=== PATIENT | female | born 1950 | race Asian ===

== ENCOUNTER 2019-03-14 14:28 | Emergency (ER) | payer MEDICARE ==
[2019-03-14] MEDS ORDERED: HYDROcodone/ACETAMINOPHEN 5-325 MG TAB PO ONE (15:24)
--- NOTE | 2019-03-14 16:00 | XRay Report ---
Left ankle-3 views INDICATION: Pain. Fall one week ago with generalized left ankle pain COMPARISON: None. IMPRESSION: Transversely oriented fracture at the tip of the lateral malleolus with moderate circumf erential soft tissue swelling about the ankle. No other fracture or malalignment identified. Mild de generative changes in the tarsals and enthesopathic change at the calcaneal tuberosity. Signer Name: Marquez Almaguer MD Signed: 03/14/2019 3:56 PM Workstation Name: [id number]
--- NOTE | 2019-03-14 16:22 | Emergency Department Report ---
ED Fall HPI - General Chief Complaint: Fall Stated Complaint: FALL Time Seen by Provider: 03/14/19 15:17 Source: patient, family Mode of arrival: Wheelchair - History of Present Illness Initial Comments: Patient reports her PCP requested she come to the ER to get an xray for her appointment in the office tomorrow. Patient reports she can not walk with crutches. Reports she will use a wheelchair until she can see her PCP tomorrow. Complaint: fall -: week(s) (1 approximately) Fall From: down stairs (#) (3) Place Fall Occurred: home Loss of Consciousness: none Prolonged Down Time?: no Symptoms Prior to Fall: none Location - Extremities: Left: Ankle Severity: mild Severity scale (0 -10): 1 Quality: aching Context: tripped/slipped Associated Symptoms: denies: headache, neck pain, numbness, weakness, chest paint, shortness of breath, abdominal pain, hematuria, unable to walk, lightheaded, vertigo, confusion - Related Data Previous Rx's Medication Instructions Recorded Last Taken Type HYDROcodone/APAP 5-325 [[place] 1 each PO Q8HR PRN #6 tablet 03/14/19 Unknown Rx 5/325] methOCARBAMOL [Robaxin TAB] 500 mg PO BID PRN #8 tab 03/14/19 Unknown Rx Allergies Allergy/AdvReac Type Severity Reaction Status Date / Time codeine Allergy Anaphylaxis Verified 03/14/19 14:30 Penicillins Allergy Anaphylaxis Verified 03/14/19 14:30 Sulfa (Sulfonamide Allergy Anaphylaxis Verified 03/14/19 14:30 Antibiotics) ED Review of Systems ROS: Stated complaint: FALL Other details as noted in HPI Other: GENERAL: No weight change, fatigue, fever, chills, or night sweats SKIN: No changes in skin or hair, no itching, no rashes, no jaundice HEAD: No trauma, headache, or visual changes EYES: No blurriness, tearing, itching, acute visual loss, conjunctival discoloration, or scleral icterus EARS: No hearing loss, tinnitus, vertigo, or earache NOSE: No rhinorrhea, stuffiness, sneezing, itching, or epistaxis MOUTH: No bleeding gums, hoarseness, sore throat, or swelling CARDIAC: No new murmur, chest pain, palpitations, dyspnea on exertion, orthopnea, PND, or edema RESPIRATORY: No shortness of breath, wheeze, cough, sputum production, hemoptysis, pneumonia, asthma, bronchitis, or emphysema GI: No change in appetite, nausea, vomiting, dysphagia, diarrhea, constipation, hematemesis, melena, hematochezia, or abdominal pain URINARY: No frequency, urgency, polyuria, dysuria, hematuria, or incontinence MUSCULOSKELETAL: Left ankle pain and swelling. No muscle weakness, joint stiffness NEUROLOGIC: No headache, syncope, loss of sensation, numbness, tingling, tremors, weakness, paralysis, seizures HEMATOLOGIC: No anemia, easy bruising, bleeding, petechiae, or purpura ENDOCRINE: No hot or cold intolerance, sweating, polyuria, polydipsia or, polyphagia no thyroid problems PSYCHIATRIC: No change in mood, no anxiety, no depression ED Past Medical Hx - Past Medical History Previous Medical History?: Yes Hx Hypertension: Yes - Surgical History Past Surgical History?: Yes Hx Breast Surgery: Yes (Right breast) - Social History Smoking Status: Never Smoker Substance Use Type: Prescribed - Medications Home Medications: Home Medications Medication Instructions Recorded Confirmed Last Taken Type HYDROcodone/APAP 5-325 [[place] 1 each PO Q8HR PRN #6 tablet 03/14/19 Unknown Rx 5/325] methOCARBAMOL [Robaxin TAB] 500 mg PO BID PRN #8 tab 03/14/19 Unknown Rx ED Physical Exam - General Limitations: Physical Limitation - Other Other exam information: GENERAL: Patient in no acute distress HEAD: Normocephalic, atraumatic EYES: PERRLA, EOM intact, no scleral icterus, no conjunctival hemorrhage, visual krishnamurthy and acuity wnl NOSE: No tenderness, discharge, sinus tenderness MOUTH: No erythema, bleeding, exudate HEART: Regular rate and rhythm, no murmur, S1-S2 are auscultated, no edema, pulses are symmetric LUNGS: No respiratory distress. Bilateral breath sounds, No tachypnea, No retractions, No wheezing, rales, rhonchi ABDOMEN: Normal bowel sounds, abdomen soft, no tenderness, no rebound, no guarding, no distention, no masses, no CVA tenderness MUSCULOSKELETAL: Left ankle lateral malleolus swelling, mild tenderness, mild decrease ROM due to pain. NEUROLOGIC: GCS 15, Alert and Oriented x3, Cranial nerves intact, normal sensation, normal strength, no cerebellar deficit, NIHSS 0 SKIN: Skin is warm and dry, no wounds, no rashes ED Course Vital Signs 03/14/19 14:31 Temperature 97.5 F L Pulse Rate 113 H Respiratory 20 Rate Blood Pressure 198/100 O2 Sat by Pulse 95 Oximetry ED Medical Decision Making - Radiology Data Radiology results: report reviewed - Medical Decision Making Patient comfortable. Reports symptom improvement. Updated with results. Plan discharge with outpatient follow up. Return if any worsening. Critical care attestation.: If time is entered above; I have spent that time in minutes in the direct care of this critically ill patient, excluding procedure time. ED Disposition Clinical Impression: Fall Qualifiers: Encounter type: initial encounter Qualified Code(s): W19.XXXA - Unspecified fall, initial encounter Closed left ankle fracture Qualifiers: Encounter type: initial encounter Qualified Code(s): S82.892A - Other fracture of left lower leg, initial encounter for closed fracture Disposition: TO HOME OR SELFCARE Is pt being admited?: No Condition: Stable Instructions: Ankle Fracture (ED), Fall Prevention for Older Adults (ED) Prescriptions: HYDROcodone/APAP 5-325 [[place] 5/325] 1 each PO Q8HR PRN #6 tablet PRN Reason: Pain methOCARBAMOL [Robaxin TAB] 500 mg PO BID PRN #8 tab PRN Reason: Spasms Referrals: NANCI JACOB MD [Staff Physician] - 2-3 Days STANLEY MCLEAN MD [Staff Physician] - as needed Time of Disposition: 16:20
[2019-03-14 16:52] VITALS: BP 182/100
== END 2019-03-14 17:14 | disposition home or self-care (01) ==
LOC: ED 14:28
DX: S82.892A Other fracture of left lower leg, initial encounter for closed fracture (principal); I10 Essential (primary) hypertension; Z79.899 Other long term (current) drug therapy; Z88.5 Allergy status to narcotic agent; Z88.2 Allergy status to sulfonamides; Z88.0 Allergy status to penicillin; W01.198A Fall on same level from slipping, tripping and stumbling with subsequent striking against other object, initial encounter; Y93.89 Activity, other specified; Y92.488 Other paved roadways as the place of occurrence of the external cause; Y99.8 Other external cause status